=== PATIENT | female | born 1995 | race Hispanic/Latino ===

== ENCOUNTER 2017-10-12 13:27 | Outpatient (CLI) | payer MEDICAID ==
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
[2017-10-12 17:22] VITALS: BP 107/67
== END 2017-10-12 17:35 | disposition home or self-care (01) ==
LOC: TRG 13:27
PROVIDERS: ATTEND Obstetrics & Gynecology
DX: O47.02 False labor before 37 completed weeks of gestation, second trimester (principal); Z3A.27 27 weeks gestation of pregnancy
CPT/HCPCS: 59025; 76815

== ENCOUNTER 2017-12-15 18:22 | Outpatient (CLI) | payer MEDICAID ==
[2017-12-15] MEDS ORDERED: LACTATED RINGERS 500 ML IV ONE (18:44)
[2017-12-15 18:51] VITALS: BP 113/71
--- NOTE | 2017-12-15 20:14 | Ultrasound Report ---
FINAL REPORT EXAM: US OB LIMITED HISTORY: r/o rom LMP 04/04/2017 with estimated age 36 weeks 3 days and EDC 01/09/2018 TECHNIQUE: Limited ultrasound of the pelvis PRIORS: None. FINDINGS: Presentation: Cephalic Activity: Monitored Placenta: Located posteriorly with no evidence for placenta previa Cardiac motion: 138 BPM using M-mode doppler Amniotic Fluid Volume: Adequate VIKTORIA: 18.6 cm (normal) IMPRESSION: Single intrauterine viable with an approximate age of 36 weeks 3 days. Normal amniotic fluid volume is noted.
== END 2017-12-15 19:45 | disposition home or self-care (01) ==
LOC: TRG 18:22
PROVIDERS: ATTEND Obstetrics & Gynecology
DX: O47.03 False labor before 37 completed weeks of gestation, third trimester (principal); Z3A.36 36 weeks gestation of pregnancy
CPT/HCPCS: 59025; 76815

== ENCOUNTER 2017-12-30 13:42 | Inpatient (IN) | payer MEDICAID ==
[2017-12-30] MEDS ORDERED: BRETHINE IVP PRN (16:12)
[2017-12-30] MEDS ORDERED: ePHEDrine SULFATE IV PRN (16:12)
[2017-12-30] MEDS ORDERED: MINERAL OIL PO PRN (16:12)
[2017-12-30] MEDS ORDERED: ZOFRAN IV PRN ×2 (16:12→20:30)
[2017-12-30] MEDS ORDERED: XYLOCAINE 2% INFILTRATI ONE (16:12)
--- NOTE | 2017-12-30 16:19 | History and Physical Report ---
History of Present Illness Date of examination: 12/30/17 Chief complaint: labor History of present illness: EDC Confirmation: 01/09/2018 Past History : 2 Term Births: 0 Premature Births: 0 Living Children: 0 Para: 0 Mult. Births: 0 Prev : 0 Prev. attempt? 0 Aborta: 1 Elect. Ab: 0 Spont. 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 Infection History Hx of STD: none HIV Risk Eval: low risk Hepatitis B Risk Eval: low risk Personal hx. of genital herpes: no Partner hx. of genital herpes: no Rash, Viral, or Febrile illness since last LMP? no Varicella/Chicken Pox Status: Immunized Genetic History Congenital Heart Defect: Mom: no Dad: yes Comments: FOC had open heart surgery as infant Yousif Disease: Mom: no Dad: no Thalassemia Mom: no Dad: no Neural Tube Defect Mom: no Dad: no Down's Syndrome Mom: no Dad: no Reji-Sachs Mom: no Dad: no Sickle Cell Disease/Trait Mom: no Dad: no Hemophilia Mom: no Dad: no Muscular Dystrophy Mom: no Dad: no Cystic Fibrosis Mom: no Dad: no Aurora Chorea Mom: no Dad: no Mental Retardation Mom: no Dad: no Fragile X Mom: no Dad: no Other Genetic/Chromosomal Disorder Mom: no Dad: no Child w/other defect Mom: no Dad: no Enviromental Exposures Xray Exposure: no Medication, drug, or alcohol use since LMP: no Chemical/Other Exposure: no Exposure to Cat Liter: no Occupational Exposure to Children: none Comments: owns cats but they are outside cats Current Allergies (reviewed today): No known allergies Past History Past Medical History: other (see HPI) Past Surgical History: 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) Family/Genetic History: other (see HPI) - Obstetrical History Expected Date of Delivery: 01/09/18 Actual Gestation: 38 Week(s) 4 Day(s) : 2 Para: 1 Hx # Term Pregnancies: 0 Number of Pregnancies: 0 Spontaneous Abortions: 1 Induced : 0 Number of Living Children: 0 Medications and Allergies Allergies Allergy/AdvReac Type Severity Reaction Status Date / Time No Known Allergies Allergy Verified 10/12/17 14:24 Home Medications Medication Instructions Recorded Confirmed Last Taken Type Pnv 29-1 Tablet 1 tab PO DAILY 12/30/17 12/30/17 2 Days Ago History ~12/28/17 Review of Systems All systems: negative - Vital Signs Vital signs: Vital Signs Temp Resp 99.2 F 12/30/17 15:24 12/30/17 15:24 Temp Pulse Resp BP Pulse Ox 99.2 F 12/30/17 15:24 12/30/17 15:24 - Physical Exam Breasts: Positive: normal Cardiovascular: Regular rate Lungs: Positive: Clear to auscultation, Normal air movement Abdomen: Positive: normal appearance, soft Genitourinary (Female): Positive: normal external genitalia, normal perenium Vulva: both: normal Vagina: Positive: normal moisture Uterus: Positive: normal size, normal contour Anus/Rectum: Positive: normal perianal skin Extremities: Positive: normal Deep Tendon Reflex Grade: Normal +2 - Obstetrical FHR: category 1 Uterine Contraction Monitor Mode: External Cervical Dilatation: 4.5 Uterine Contraction Pattern: Regular Uterine Tone Measurement Phase: Contraction Uterine Contraction Intensity: Moderate Results All other labs normal. Assessment and Plan A: 22y/o in labor @ 38+4 weeks, GBS negative. complicated by third trimester dx of CT - treated 12/15/17 but JENNIFER not yet collected. P: Admission orders in EMR, Epidural PRN, pitocin augmentation as needed - Patient Problems (1) Active labor at term Current Visit: Yes Status: Acute (2) 38 weeks gestation of Current Visit: Yes Status: Acute
[2017-12-30] MEDS ORDERED: PITOCin/NS 30 UNIT/500ML 30 UNITS/500 ML BAG IV SCH (17:00)
[2017-12-30] MEDS ORDERED: PITOCin/NS 20 UNIT/1000ML DRIP 20 UNITS/1,000 ML BAG IV SCH (17:00)
[2017-12-30 17:15] LABS: Hematocrit 33.3 % (30.3-42.9); Mean Corpuscular HGB Conc 33 % (30-34); Mean Corpuscular Hemoglobin 27 pg (28-32); Mean Corpuscular Volume 82 fl (79-97); Platelet Count 245 K/mm3 (140-440); Red Blood Count 4.08 M/mm3 (3.65-5.03); Red Cell Distribution Width 14.7 % (13.2-15.2)
[2017-12-30] MEDS: SUBLIMAZE IV PRN ×2 (17:42→19:50)
[2017-12-30] MEDS: LACTATED RINGERS 1,000 ML IV SCH ×2 (17:42→21:39)
[2017-12-30] MEDS ORDERED: PHENERGAN PO PRN (20:30)
[2017-12-30] MEDS ORDERED: PHENERGAN PR PRN (20:30)
[2017-12-30] MEDS ORDERED: NARCAN 0.4 MG/1 ML IV PRN (20:30)
[2017-12-30] MEDS ORDERED: BENADRYL IV PRN (20:30)
[2017-12-30] MEDS ORDERED: SODIUM CHLORIDE FLUSH SYRINGE 10 ML IV NR (21:00)
[2017-12-30] MEDS ORDERED: fentaNYL-BUPIV 2 MCG/ML-0.125% 200 MCG/100 ML BAG EPIDURAL SCH (21:00)
--- NOTE | 2017-12-31 01:07 | Procedure Note ---
OB Delivery Note - Delivery Date of Delivery: 12/31/17 Surgeon: ANNE ROSALES Estimated blood loss: 200cc - Vaginal Delivery presentation: vertex Delivery position: OA Intrapartum events: none Delivery induction: none Delivery monitor: external FHT, external uterine Route of delivery: Delivery placenta: spontaneous Delivery cord: 3 umbilical vessels Episiotomy: midline (no extensions) Delivery laceration: none Delivery repair: vicryl (3-0) Anesthesia: epidural Delivery comments: Delivery as above. No shoulder dystocia or nuchal cord present. Ant shoulder and rest of infant delivered w/o difficulty. NICU team present due to decels with pushing. delivered over a MLE and placed on maternal abdomen. Cord clamped times two and cut times one. Cord blood was not collected. MLE was w/o extension and repaired in usual fashion with 3-0 vicryl. Mother and infant stable on LDR. - Infant A at 1 minute: 8 at 5 minutes: 9 Gender: Male (7lbs 5 oz)
[2017-12-31] MEDS ORDERED: DULCOLAX PR PRN (01:10)
[2017-12-31] MEDS ORDERED: NORCO 5/325 PO PRN (01:10)
[2017-12-31] MEDS ORDERED: TYLENOL PO PRN (01:10)
[2017-12-31] MEDS ORDERED: MILK OF MAGNESIA PO PRN (01:10)
[2017-12-31] MEDS ORDERED: TUCKS PAD TP PRN (01:10)
[2017-12-31] MEDS ORDERED: BENADRYL PO PRN (01:10)
[2017-12-31] MEDS ORDERED: LANSINOH TP PRN (01:10)
[2017-12-31] MEDS ORDERED: SODIUM CHLORIDE FLUSH SYRINGE 10 ML IV NR (02:00)
[2017-12-31] MEDS: MOTRIN PO SCH (05:57)
[2017-12-31 13:37] LABS: Hematocrit 26.3 % (30.3-42.9); Hemoglobin 8.8 gm/dl (10.1-14.3)
[2018-01-01] MEDS: MOTRIN PO SCH ×3 (00:20→12:05)
[2018-01-01] MEDS ORDERED: BOOSTRIX IM ONE (06:00)
--- NOTE | 2018-01-01 09:53 | Discharge Summary ---
Providers - Providers Date of Admission: 12/30/17 16:59 Date of discharge: 01/01/18 Attending physician: ANNE ROSALES Primary care physician: ANNE ROSALES Hospitalization Reason for admission: active labor Delivery: Episiotomy: midline Other procedures: none complications: none Discharge diagnosis: IUP at term delivered [place] baby: male Hospital course: Patient was admitted underwent a normal spontaneous vaginal delivery. Her course was benign. She was afebrile throughout her stay. Her day 1 hematocrit was 26.3%. Patient without orthostatic symptoms. Patient is breast-feeding and undecided on control. Patient desires discharge today. Condition at discharge: Good Disposition: DC-01 TO HOME OR SELFCARE - Discharge Diagnoses (1) Active labor at term Status: Resolved (2) 38 weeks gestation of Status: Resolved Plan - Discharge Medications Prescriptions: Lidocain2.5%/Prilocai2.5% [Emla] 2 gm TP ONCE #1 tube Ibuprofen 800 mg PO Q6HR #30 tablet - Provider Discharge Summary Activity: routine, no sex for 6 weeks Diet: routine Instructions: routine Additional instructions: [] Smoking cessation referral if applicable(refer to patient education folder for contact #) [] Refer to [facility] Booklet Call your doctor immediately for: * Fever > 100.5 * Heavy vaginal bleeding ( >1 pad per hour) * Severe persistent headache * Shortness of breath * Reddened, hot, painful area to leg or breast * Drainage or odor from incision. * Keep incision clean and dry at all times and follow doctor's instructions regarding bathing/showering Patient to schedule a circumcision for her son. An follow-up in office in 4-6 weeks. - Follow up plan Follow up: ANNE ROSALES MD [Primary Care Provider] - 7 Days
[2018-01-01 19:30] VITALS: BP 112/73
== END 2018-01-01 17:15 | disposition home or self-care (01) | DRG 775 ==
LOC: TRG 13:42 → LD 16:59 → OB 12-31 02:25
PROVIDERS: ADMIT Obstetrics & Gynecology; ATTEND Obstetrics & Gynecology
PROC: 10E0XZZ Delivery of Products of Conception, External Approach (ICD-10-PCS; principal; 2017-12-31)
PROC: 0W8NXZZ Division of Female Perineum, External Approach (ICD-10-PCS; 2017-12-31)
PROC: 3E0R3BZ Introduction of Anesthetic Agent into Spinal Canal, Percutaneous Approach (ICD-10-PCS; 2017-12-31)
PROC: 00HU33Z Insertion of Infusion Device into Spinal Canal, Percutaneous Approach (ICD-10-PCS; 2017-12-31)
DX: O99.344 Other mental disorders complicating childbirth (principal); Z3A.38 38 weeks gestation of pregnancy; Z37.0 Single live birth; F32.9 Major depressive disorder, single episode, unspecified
CPT/HCPCS: 36415; 85014; 85018; 85027; 86592; 86850; 86900; 86901; 88307; 99211; G0463; J2590; J3010; J7120

== ENCOUNTER 2019-01-31 09:43 | Inpatient (IN) | payer MEDICAID ==
--- NOTE | 2019-01-31 11:08 | History and Physical Report ---
History of Present Illness Date of examination: 01/31/19 Date of admission: contractions Chief complaint: Pt presents c/o painful contractions. Cx noted in traige to be 6/90/0. Will admit for active pre term labor and deliver. History of present illness: EDC Calculations LMP: 02/22/2019 First Doppler FHT (date): 07/27/2018 FHT: 02/22/2019 EDC Confirmation: 02/22/2019 Gestational Age: 10 weeks Past History : 3 Term Births: 1 Premature Births: 0 Living Children: 1 Para: 1 Mult. Births: 0 Prev : 0 Prev. attempt? 0 Aborta: 1 Elect. Ab: 0 Spont. Ab: 1 Ectopics: 0 # 1 Delivery date: 03/2016 Weeks Gestation: 9 Delivery type: SAB # 2 Delivery date: 12/31/2017 Weeks Gestation: 38.5 Delivery type: Vaginal Anesthesia type: epidural Delivery location: [facility] Sex: male weight: 7.31 Name: AGUSTINA Comments: none Past Medical History: Reviewed history from 06/16/2017 and no changes required: depression Past Surgical History: Reviewed history from 06/16/2017 and no changes required: Negative Past Surgical History Past Medical History Abnormal PAP: negative Social Hx: Single unemployed no smoking/drinking/drugs Patient is single Smoking History: Patient has never smoked. Infection History Hx of STD: chlamydia HIV Risk Eval: low risk Hepatitis B Risk Eval: low risk Personal hx. of genital herpes: no Partner hx. of genital herpes: no Rash, Viral, or Febrile illness since last LMP? no Varicella/Chicken Pox Status: Immunized Genetic History Congenital Heart Defect: Mom: no Dad: yes Yousif Disease: Mom: no Dad: no Thalassemia Mom: no Dad: no Neural Tube Defect Mom: no Dad: no Down's Syndrome Mom: no Dad: no Reji-Sachs Mom: no Dad: no Sickle Cell Disease/Trait Mom: no Dad: no Hemophilia Mom: no Dad: no Muscular Dystrophy Mom: no Dad: no Cystic Fibrosis Mom: no Dad: no Ana Chorea Mom: no Dad: no Mental Retardation Mom: no Dad: no Fragile X Mom: no Dad: no Other Genetic/Chromosomal Disorder Mom: no Dad: no Child w/other defect Mom: no Dad: no Enviromental Exposures Xray Exposure: no Medication, drug, or alcohol use since LMP: no Chemical/Other Exposure: no Exposure to Cat Liter: no Hx of Parvovirus (Fifth Disease): no Occupational Exposure to Children: none Active Medications (reviewed today): AZITHROMYCIN 500 MG ORAL TABLET (AZITHROMYCIN) 2 tabs po at one time PEPCID 40 MG ORAL TABLET (FAMOTIDINE) 1/2 tab BID ANALPRAM HC 2.5-1 % RECTAL CREAM (HYDROCORTISONE JADON-PRAMOXINE) apply bid to rectum ZOFRAN ODT 8 MG ORAL TABLET DISINTEGRATING (ONDANSETRON) 1 po q12hrs prn PNV () Current Allergies (reviewed today): No known allergies Past History Past Medical History: other (anemia) Past Surgical History: 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 Social history: no significant social history, single, lives with family - Obstetrical History Expected Date of Delivery: 02/22/19 Actual Gestation: 36 Week(s) 6 Day(s) : 2 Para: 1 Number of Living Children: 1 Medications and Allergies Allergies Allergy/AdvReac Type Severity Reaction Status Date / Time No Known Allergies Allergy Verified 10/12/17 14:24 Home Medications Medication Instructions Recorded Confirmed Last Taken Type Pnv 29-1 Tablet 1 tab PO DAILY 12/30/17 12/30/17 2 Days Ago History ~12/28/17 Ibuprofen 800 mg PO Q6HR #30 tablet 12/31/17 Unknown Rx Lidocain2.5%/Prilocai2.5% [Emla] 2 gm TP ONCE #1 tube 12/31/17 Unknown Rx Ferrous Sulfate [Feosol 325 MG tab] 325 mg PO BID #60 tablet 01/01/18 Unknown Rx Ibuprofen [Motrin 800 MG tab] 800 mg PO Q6H PRN #30 tablet 01/01/18 Unknown Rx Lidocain2.5%/Prilocai2.5% [Emla] 5 gm TP ONCE #1 tube 01/01/18 Unknown Rx Review of Systems All systems: negative - Vital Signs Vital signs: Vital Signs Pulse BP 82 119/72 01/31/19 10:56 01/31/19 10:56 Temp Pulse Resp BP Pulse Ox 82 119/72 01/31/19 10:56 01/31/19 10:56 - Physical Exam Abdomen: Positive: normal appearance, soft. Negative: distention, tenderness, guarding Genitourinary (Female): Positive: normal external genitalia, normal perenium. Negative: perineal/vulvar lesions Vulva: both: normal - Obstetrical FHR: category 1 Cervical Dilatation: 6.0 Cervical Effacement Percentage: 90 station: 0 Uterine Contraction Pattern: Irregular Uterine Tone Measurement Phase: Resting Uterine Contraction Intensity: Moderate Results All other labs normal. Assessment and Plan - Patient Problems (1) 36 weeks gestation of Current Visit: Yes Status: Acute (2) labor in third trimester Current Visit: Yes Status: Acute Qualifiers: Fetus number: single or unspecified fetus Plan to address problem: -GBS negative -anticipate -desires epidrual -iv pain meds for now.
[2019-01-31] MEDS ORDERED: BRETHINE IVP PRN (11:15)
[2019-01-31] MEDS ORDERED: MINERAL OIL PO PRN (11:15)
[2019-01-31] MEDS ORDERED: SUBLIMAZE IV PRN (11:15)
[2019-01-31] MEDS ORDERED: BRETHINE SUB-Q PRN (11:15)
[2019-01-31 11:48] LABS: Hematocrit 28.1 % (30.3-42.9); Hemoglobin 9.2 gm/dl (10.1-14.3); Mean Corpuscular HGB Conc 33 % (30-34); Mean Corpuscular Volume 75 fl (79-97); Platelet Count 239 K/mm3 (140-440); Red Blood Count 3.76 M/mm3 (3.65-5.03)
[2019-01-31] MEDS ORDERED: XYLOCAINE 2% INFILTRATI ONE (12:00)
[2019-01-31] MEDS ORDERED: PITOCin/NS 20 UNIT/1000ML DRIP 20 UNITS/1,000 ML BAG IV SCH (12:00)
[2019-01-31] MEDS ORDERED: ZOFRAN IV NR (13:06)
[2019-01-31] MEDS: LACTATED RINGERS 1,000 ML IV SCH ×2 (13:18→16:58)
[2019-01-31] MEDS ORDERED: MARCAINE 0.25% INFILTRATI ONE (13:48)
[2019-01-31] MEDS ORDERED: NARCAN 2 MG/2 ML IV PRN (14:12)
--- NOTE | 2019-01-31 14:12 | Anesthesia Consultation ---
Anesthesia Consult and Med Hx Date of service: 01/31/19 - Airway Anesthetic Teeth Evaluation: Good ROM Head & Neck: Adequate Mental/Hyoid Distance: Adequate Mallampati Class: Class II Intubation Access Assessment: Good - Pulmonary Exam CTA: Yes - Cardiac Exam Cardiac Exam: RRR - Pre-Operative Health Status ASA Pre-Surgery Classification: ASA2 Proposed Anesthetic Plan: Epidural - Pulmonary Hx Asthma: No COPD: No Hx Pneumonia: No - Cardiovascular System Hx Hypertension: No - Central Nervous System Hx Seizures: No Hx Psychiatric Problems: No - Endocrine Hx Renal Disease: No Hx End Stage Renal Disease: No Hx Hypothyroidism: No Hx Hyperthyroidism: No - Hematic Hx Anemia: No Hx Sickle Cell Disease: No - Other Systems Hx Alcohol Use: No
[2019-01-31] MEDS ORDERED: fentaNYL-BUPIV 2 MCG/ML-0.125% 200 MCG/100 ML BAG EPIDURAL SCH (15:00)
[2019-01-31] MEDS ORDERED: PITOCin/NS 30 UNIT/500ML 30,000 MILLIUNITS/500 ML BAG IV ONE (16:42)
--- NOTE | 2019-01-31 20:20 | Procedure Note ---
OB Delivery Note - Delivery Date of Delivery: 01/31/19 Surgeon: ANNE ROSALES Estimated blood loss: 200cc - Vaginal Delivery presentation: vertex Intrapartum events: labor-<37 weeks Delivery induction: none Delivery augmentation: pitocin Delivery monitor: external FHT, external uterine Route of delivery: Delivery placenta: spontaneous Episiotomy: none Delivery laceration: 2nd degree (perineal) Delivery repair: vicryl (3-0) Anesthesia: epidural Delivery comments: Delivery as above.Head delivered with infant hand. ant shoulder and rest of baby delivered w/o difficulty. placed on maternal abdomen. Cord clamed x2 and cut times one. Placenta delivered spontaneously intact. Laceration as above and repaired in usual fashion. EBL 200ml. - Infant A at 1 minute: 8 at 5 minutes: 9 Gender: Male
[2019-01-31] MEDS ORDERED: ZOFRAN IV PRN (20:21)
[2019-01-31] MEDS ORDERED: LANSINOH TP PRN (20:21)
[2019-01-31] MEDS ORDERED: TYLENOL PO PRN (20:21)
[2019-01-31] MEDS ORDERED: PHENERGAN PO PRN (20:21)
[2019-01-31] MEDS ORDERED: BENADRYL PO PRN (20:21)
[2019-01-31] MEDS ORDERED: PHENERGAN PR PRN (20:21)
[2019-01-31] MEDS ORDERED: DULCOLAX PR PRN (20:21)
[2019-01-31] MEDS ORDERED: TUCKS PAD TP PRN (20:21)
[2019-01-31] MEDS ORDERED: MILK OF MAGNESIA PO PRN (20:21)
[2019-01-31] MEDS ORDERED: SODIUM CHLORIDE FLUSH SYRINGE 10 ML IV PRN (21:00)
[2019-01-31] MEDS: IBUPROFEN PO SCH (23:14)
[2019-02-01] MEDS ORDERED: BOOSTRIX IM ONE (06:00)
[2019-02-01] MEDS: IBUPROFEN PO SCH ×4 (06:04→23:24)
--- NOTE | 2019-02-01 06:41 | Post Anesthesia Evaluation ---
- Post Anesthesia Evaluation Patient Participated: Yes Airway Patent: Yes Stable Respiratory Function: Yes Nausea/Vomiting: No Temp > 96.8F: Yes Pain Manageable: Yes Adequeate Hydration: Yes Anesthesia Complications: No Block Receding Appropriately: Yes Patient on Ventilator: No
--- NOTE | 2019-02-01 08:39 | Progress Note ---
Assessment and Plan PPD1 Patient resting in bed, reports feeling well, she denies any complaints or concerns at this time. Patient reports pain is 0. Fundus is firm, ML, U/s. Vaginal bleeding is scant, patient denies any clots or soaking greater than one pad per hour. Patient reports breast feeding , denies any breast complaints. She reports infant is doing well, but sometimes he "has a hard time latching". Tips for DWP. Encouraged patient to increase water intake and frequent BF sessions. Patient denies any dizziness or feeling faint with ambulation or position changes. Awaiting post delivery H&H results, iron and colace started as pt presented on admission anemic. Will continue to monitor for H&H results. VSSAF. Continue pathway. Subjective - Subjective Date of service: 02/01/19 Principal diagnosis: PPD1 Patient reports: appetite normal, voiding normally, pain well controlled, ambulating normally [place]: doing well Objective - Vital Signs Latest vital signs: Vital Signs Temp Pulse Resp BP BP Pulse Ox 02/01/19 04:00 98.7 F 68 16 114/67 02/01/19 00:00 98.4 F 78 16 106/70 01/31/19 22:00 98.6 F 76 18 98/63 01/31/19 20:59 78 111/62 01/31/19 20:16 84 100 01/31/19 20:11 94 H 100 01/31/19 20:06 83 99 01/31/19 20:01 95 H 100 01/31/19 19:56 89 100 01/31/19 19:51 89 100 01/31/19 19:46 97 H 99 01/31/19 19:41 88 99 01/31/19 19:36 84 100 01/31/19 19:31 93 H 99 01/31/19 19:27 69 77 L 01/31/19 19:26 92 H 100 01/31/19 19:21 98 H 100 01/31/19 19:18 97.5 F L 82 16 111/68 100 01/31/19 19:16 89 100 01/31/19 19:11 91 H 100 01/31/19 19:06 95 H 99 01/31/19 19:03 102 H 79 L 01/31/19 19:01 102 H 100 01/31/19 18:56 104 H 111/68 100 01/31/19 18:51 99 H 100 01/31/19 18:46 104 H 100 01/31/19 18:41 91 H 100 01/31/19 18:36 73 100 01/31/19 18:31 75 100 01/31/19 18:28 86 96/55 01/31/19 18:26 79 94 01/31/19 18:21 75 100 01/31/19 18:16 63 100 01/31/19 18:11 80 99 01/31/19 18:06 75 99 01/31/19 18:01 78 100 01/31/19 17:57 71 93/51 01/31/19 17:56 69 100 01/31/19 17:51 67 100 01/31/19 17:46 63 100 01/31/19 17:41 72 100 01/31/19 17:36 51 L 100 01/31/19 17:31 71 99 01/31/19 17:28 58 L 84/52 01/31/19 17:26 54 L 100 01/31/19 17:21 59 L 100 01/31/19 17:16 72 100 01/31/19 17:11 77 90 01/31/19 17:06 63 100 01/31/19 17:01 63 100 01/31/19 16:56 67 84/49 100 01/31/19 16:51 60 100 01/31/19 16:46 77 100 01/31/19 16:43 66 84/51 01/31/19 16:41 60 100 01/31/19 16:36 57 L 100 01/31/19 16:31 65 100 01/31/19 16:29 77 88/51 01/31/19 16:26 67 100 01/31/19 16:21 74 100 01/31/19 16:16 87 100 01/31/19 16:13 75 92/54 01/31/19 16:11 64 100 01/31/19 16:06 65 100 01/31/19 16:01 69 100 01/31/19 15:59 71 91/53 01/31/19 15:56 77 100 01/31/19 15:51 53 L 99 01/31/19 15:46 72 99 01/31/19 15:44 58 L 81/44 01/31/19 15:41 82 99 07/07/19 15:36 64 99 01/31/19 15:31 68 99 01/31/19 15:28 78 81/47 01/31/19 15:26 72 99 01/31/19 15:21 70 98 01/31/19 15:16 72 100 01/31/19 15:14 80 76/44 01/31/19 15:11 77 99 01/31/19 15:10 77 86/50 01/31/19 15:06 85 99 01/31/19 15:01 77 99 01/31/19 14:58 75 87/52 01/31/19 14:56 87 100 01/31/19 14:51 83 100 01/31/19 14:46 90 100 01/31/19 14:43 76 92/50 01/31/19 14:41 81 99 01/31/19 14:36 60 99 01/31/19 14:31 83 99 01/31/19 14:28 52 L 99/54 01/31/19 14:26 75 98 01/31/19 14:21 67 98 01/31/19 14:16 85 98 01/31/19 14:11 89 92/50 98 01/31/19 14:09 100 H 102/60 01/31/19 14:07 75 94/51 01/31/19 14:06 70 98 01/31/19 14:05 85 90/54 01/31/19 14:03 83 96/50 01/31/19 14:01 83 100/57 99 01/31/19 14:00 81 129/62 01/31/19 13:59 89 0 L 01/31/19 13:57 83 108/70 01/31/19 13:56 67 99 01/31/19 13:55 90 106/65 01/31/19 13:53 90 110/68 01/31/19 13:51 73 106/65 100 01/31/19 13:50 99 H 105/70 01/31/19 13:46 78 98 01/31/19 13:17 74 97/53 01/31/19 12:41 97.6 F 18 01/31/19 10:56 82 119/72 Intake and Output 01/31/19 02/01/19 02/01/19 23:59 07:59 15:59 Intake Total 1201.267 300 Output Total 1600 Balance 1201.267 -1300 Intake: IV 1001.267 Lactated Ringers 1,000 ml 1000 @ 125 mls/hr IV DIRECT NAWAF Rx#:[id number] PITOCin/NS 30 UNIT/500ML 1.267 30,000 milliunits In 500 ml @ 2 MILLIUNITS/MIN 2 mls/hr IV DIRECT ONE Rx#:[id number] Oral 200 Intake, Free Water 300 Output: Urine 1600 Void 1600 Other: Total, Intake Amount 200 Total, Output Amount 800 # Voids Void 1 Estimated Blood Loss 200 - Exam Breasts: Present: normal Cardiovascular: Present: Regular rate, Normal S1, Normal S2 Lungs: Present: Clear to auscultation, Normal air movement Abdomen: Present: normal appearance, soft, normal bowel sounds Vulva: both: normal Uterus: Present: normal, firm, fundal height below umbilicus Extremities: Present: normal - Labs Labs: Abnormal lab results 01/31/19 Range/Units 11:18 WBC 13.2 H (4.5-11.0) K/mm3 Hgb 9.2 L (10.1-14.3) gm/dl Hct 28.1 L (30.3-42.9) % MCV 75 L (79-97) fl MCH 24 L (28-32) pg RDW 16.0 H (13.2-15.2) %
[2019-02-01 08:54] LABS: Hematocrit 25.3 % (30.3-42.9); Hemoglobin 8.2 gm/dl (10.1-14.3)
[2019-02-01] MEDS: FEOSOL PO SCH ×2 (10:32→23:24)
[2019-02-01] MEDS: COLACE PO SCH ×2 (10:32→23:24)
[2019-02-02] MEDS: IBUPROFEN PO SCH ×2 (03:00→09:10)
--- NOTE | 2019-02-02 08:32 | Discharge Summary ---
Providers - Providers Date of Admission: 01/31/19 11:17 Date of discharge: 02/02/19 (desires d/c home) Attending physician: ANNE ROSALES Primary care physician: ANNE ROSALES Hospitalization Reason for admission: Labor Condition: Good Pertinent studies: post delivery H&H 8.2/25.3, asymptomatic existing anemia Procedures: Hospital course: uncomplicated and course Disposition: DC-01 TO HOME OR SELFCARE - Discharge Diagnoses (1) (normal spontaneous vaginal delivery) Status: Acute Core Measure Documentation - Palliative Care Palliative Care/ Comfort Measures: Not Applicable - Core Measures Any of the following diagnoses?: none Exam - Constitutional Vitals: Temp Pulse Resp BP Pulse Ox 98.1 F 53 L 18 91/61 98 02/02/19 01:52 02/02/19 01:52 02/02/19 01:52 02/02/19 01:52 02/02/19 01:52 General appearance: Present: no acute distress, well-nourished - EENT Eyes: Present: PERRL ENT: hearing intact, clear oral mucosa - Neck Neck: Present: supple, normal ROM - Respiratory Respiratory effort: normal Respiratory: bilateral: CTA - Cardiovascular Heart Sounds: Present: S1 & S2. Absent: rub, click - Extremities Extremities: pulses symmetrical, No edema Peripheral Pulses: within normal limits - Abdominal General gastrointestinal: Present: soft, non-tender, non-distended, normal bowel sounds Female genitourinary: Present: normal - Integumentary Integumentary: Present: clear, warm, dry - Musculoskeletal Musculoskeletal: gait normal, strength equal bilaterally - Psychiatric Psychiatric: appropriate mood/affect, intact judgment & insight - Neurologic Neurologic: CNII-XII intact, moves all extremities - Additional findings Additional findings: lochia scant, fundus firm, bottle and breast feeding Plan Activity: no restrictions Diet: regular Follow up with: ANNE ROSALES MD [Primary Care Provider] - 7 Days (Congratulations! Please call [phone] to schedule your son's circumcision in 1 week and your visit in 4 weeks. Bring GAURAV cream to your son's visit and await further instruction. Call for any questions or concerns. ) Prescriptions: Docusate Sodium [Colace] 100 mg PO BID PRN #60 capsule PRN Reason: Constipation Lidocain2.5%/Prilocai2.5% [Emla] 5 gm TP ONCE #1 tube Ferrous Sulfate [Feosol 325 MG tab] 325 mg PO BID #60 tablet
[2019-02-02] MEDS: FEOSOL PO SCH (09:10)
[2019-02-02] MEDS: COLACE PO SCH (09:11)
[2019-02-02 15:05] VITALS: BP 113/73
== END 2019-02-02 17:06 | disposition home or self-care (01) | DRG 775 ==
LOC: TRG 09:43 → LD 11:17 → OB 21:40
PROVIDERS: ADMIT Obstetrics & Gynecology; ATTEND Obstetrics & Gynecology
PROC: 10E0XZZ Delivery of Products of Conception, External Approach (ICD-10-PCS; principal; 2019-01-31)
PROC: 0KQM0ZZ Repair Perineum Muscle, Open Approach (ICD-10-PCS; 2019-01-31)
PROC: 3E0R3BZ Introduction of Anesthetic Agent into Spinal Canal, Percutaneous Approach (ICD-10-PCS; 2019-01-31)
PROC: 00HU33Z Insertion of Infusion Device into Spinal Canal, Percutaneous Approach (ICD-10-PCS; 2019-01-31)
DX: O60.14X0 Preterm labor third trimester with preterm delivery third trimester, not applicable or unspecified (principal); O99.02 Anemia complicating childbirth; D64.9 Anemia, unspecified; O70.1 Second degree perineal laceration during delivery; Z3A.36 36 weeks gestation of pregnancy; Z37.0 Single live birth; Z79.899 Other long term (current) drug therapy
CPT/HCPCS: 36415; 85014; 85018; 85027; 86592; 86850; 86900; 86901; 88307; 90471; 90715; G0378; J2405; J2590; J3010; J7120

== ENCOUNTER 2020-12-21 07:48 | Day surgery (SDC) | payer MEDICAID ==
[2020-12-15 11:49] LABS: Hematocrit 42.1 % (30.3-42.9); Hemoglobin 14.4 gm/dl (10.1-14.3); Mean Corpuscular HGB Conc 34 % (30-34); Mean Corpuscular Volume 87 fl (79-97); Platelet Count 249 K/mm3 (140-440); Red Blood Count 4.85 M/mm3 (3.65-5.03); Red Cell Distribution Width 13.4 % (13.2-15.2)
--- NOTE | 2020-12-19 14:32 | History and Physical Report ---
History of Present Illness Date of examination: 12/19/20 History of present illness: Patient has been reassessed/reevaluated. H&P has been reviewed. No interval changes. Patient desires sterilization. Discussed with various methods of contraceptives including abstinence, barrier and hormonal. Discussed oral, implantable, dermal, injectable,intravaginal and intrauterine methods. Patient declined temporary contraceptives. Discuss the permanency of sterilization. High risk of regret of women under 30 years old age who have had sterilization surgery and 0.5 to 1% risk of failure. Questions answered Patient understands and desires to proceed. Vital Signs: Patient Profile: 25 Years Old Female LMP: 12/2019 Height: 66 inches (167.64 cm) Weight: 117 pounds BMI: 18.88 Temp: 97.8 degrees F BP sittin / 80 (left arm) Menstrual History: LMP (date): 12/2019 Current Method of Contraception: Depo-Provera Date of Last Pap Smear: 06/06/2020 Past History : 4 Term Births: 1 Premature Births: 1 Living Children: 2 Para: 2 Mult. Births: 0 Prev : 0 Prev. attempt? 0 Aborta: 2 Elect. Ab: 0 Spont. Ab: 2 Ectopics: 0 # 1 Delivery date: 03/2016 Weeks Gestation: 9 Delivery type: SAB # 2 Delivery date: 12/31/2017 Weeks Gestation: 38.5 Delivery type: Vaginal Anesthesia type: epidural Delivery location: [facility] Sex: male weight: 7.31 Name: AGUSTINA Comments: none # 3 Delivery date: 01/31/2019 Weeks Gestation: 36.6 Delivery type: Vaginal Anesthesia type: epidural Delivery location: [facility] Sex: female weight: 2933g Comments: labor # 4 Delivery date: 12/10/2019 Weeks Gestation: 9 Delivery type: SAB Comments: No D&C done [employer] History Uterine Surgery (not C/S): negative Operations: left toe (2014) Abnormal PAP: negative Uterine Anomaly: negative DAVID Exposure: negative Infertility: negative Infection History HIV Risk Eval: no Hep B Immunized: yes TB exposure: no Personal hx. of genital herpes: no Partner hx. of genital herpes: no Hx of STD: chlamydia Current Allergies: No known allergies Past Medical History: Anemia Past Surgical History: left toe (2014) Family History Summary: General Comments - FH: mother - DM no known family hx cancer Social History: Single unemployed no smoking/drinking/drugs Patient is single Smoking History: Patient has never smoked. Risk Factors: Smoked Tobacco Use: Never smoker Smokeless Tobacco Use: Never Passive smoke exposure: no Drug use: no HIV high-risk behavior: no Caffeine use: <1 drinks per day Alcohol use: no Exercise: yes Times per week: 6 Seatbelt use: 100 % PAP Smear History: Date of Last PAP Smear: 06/06/2020 Review of Systems General Denies fever, chills, sweats, anorexia, fatigue, weakness, malaise, weight loss and sleep disorder. Denies vaginal discharge, incontinence, dysuria, hematuria, urinary frequency, amenorrhea, menorrhagia, abnormal vaginal bleeding, pelvic pain, genital sores, decreased libido, painful periods, painful sex, urinary urgency, hot flashes, vaginal dryness, vaginal itching and vaginal odor. CV Denies chest pains, palpitations, syncope, dyspnea on exertion, orthopnea, PND and peripheral edema. Resp Denies cough, dyspnea at rest, excessive sputum, hemoptysis, wheezing and p leurisy. GI Denies nausea, vomiting, diarrhea, constipation, change in bowel habits, abdominal pain, melena, hematochezia, jaundice, gas/bloating, indigestion/heartburn, dysphagia and odynophagia. Breast Denies left breast lump, right breast lump, nipple discharge, bloody discharge from nipple, breast pain, abnormal mammogram and breast enlargement. Psych Denies depression, anxiety, irritability and mood swings. Past History Past Medical History: other (SEE HPI FOR DETAILS) Past Surgical History: Other (SEE HPI FOR DETAILS) Social history: full code, other (SEE HPI FOR DETAILS) Family history: other (SEE HPI FOR DETAILS) Medications and Allergies Allergies Allergy/AdvReac Type Severity Reaction Status Date / Time No Known Allergies Allergy Verified 10/12/17 14:24 Home Medications Medication Instructions Recorded Confirmed Last Taken Type No Known Home Medications [No 12/14/20 12/14/20 Unknown History Reported Home Medications] Review of Systems Constitutional: other (SEE HPI FOR DETAILS) Exam - Physical Exam Narrative exam: HEENT: normocephalic, no lesions or deformities Skin no ulcers, xanthomas Chest: respiratory effort normal, clear to auscultation CV: regular, normal S1-S2, no murmur, no rub, no gallop Abdomen: soft, non-tender, no masses, bowel sounds normal Neuro: no gross anomalities Extremities: no clubbing, cyanosis, or edema [employer] Exams Vulva/Vagina: normal appearance, no discharge, lesions. No evidence of cystocele or rectocele. Cervix: normal appearance, no lesions, no discharge Uterus: normal position, midline, mobile Adnexae: no masses or tenderness Rectovaginal: exam defered - Constitutional Vitals: Temp Pulse Resp BP Pulse Ox 1115 F H 92 H 18 139/77 99 12/15/20 11:15 12/15/20 11:15 12/15/20 11:15 12/15/20 11:15 12/15/20 11:15 Results - Labs CBC & Chem 7: 12/15/20 06:00 Assessment and Plan - Patient Problems (1) Encounter for sterilization Current Visit: No Status: Acute Plan to address problem: Patient desires sterilization.Discuss the permanency of sterilization. High risk of regret and 0.5 to 1% risk of failure. Discussed options of tubal blockage and salpingectomy and it's possible benefit of preventing ovarian cancer and increased risks of bleeding during the procedure. Discuss the risks of the surgery including infection, bleeding possibly heavy enough to require a blood transfusion, possilble damage to bowel, bladder or ureter. Patient understands and desires to proceed with salpingectomy.
[~2020-12-21 07:48] MED LIST: ACETAMINOPHEN 500 MG TAB PO SCH; BUPIVACAINE/PF (0.5%) 5 MG/1 ML 30 ML VIAL INFILTRATI ONE; CELECOXIB 200 MG CAP PO NR; GABAPENTIN 300 MG CAP PO NR; LACTATED RINGERS 1,000 ML IV SCH; MIDAZOLAM 2 MG/2 ML INJ IV NR
--- NOTE | 2020-12-21 08:24 | Anesthesia Consultation ---
Anesthesia Consult and Med Hx Date of service: 12/21/20 - Airway Anesthetic Teeth Evaluation: Good ROM Head & Neck: Adequate Mental/Hyoid Distance: Adequate Mallampati Class: Class II Intubation Access Assessment: Probably Good - Pre-Operative Health Status ASA Pre-Surgery Classification: ASA1 Proposed Anesthetic Plan: General - Pulmonary Hx Smoking: No - Cardiovascular System Hx Hypertension: No - Central Nervous System CVA: No - Endocrine Hx Renal Disease: No Hx Liver Disease: No Hx Insulin Dependent Diabetes: No Hx Non-Insulin Dependent Diabetes: No Hx Thyroid Disease: No - Other Systems Hx Obesity: No - Additional Comments Anesthesia Medical History Comments: No hx anesthetic complications.
--- NOTE | 2020-12-21 08:24 | Anesthesia Day of Surgery ---
Anesthesia Day of Surgery - Day of Surgery Patient Examined: Yes Patient H&P Reviewed: Yes Patient is NPO: Yes
[2020-12-21] MEDS ORDERED: oxyCODONE /ACETAMINOPHEN 5-325MG TAB PO PRN (08:30)
[2020-12-21] MEDS ORDERED: ONDANSETRON 4 MG/2 ML INJ IV PRN (08:30)
[2020-12-21] MEDS ORDERED: propofoL 200 MG/20 ML VIAL IV ONE (11:10)
[2020-12-21] MEDS ORDERED: fentaNYL 100 MCG/2 ML INJ ONE (11:10)
[2020-12-21] MEDS ORDERED: GLYCOPYRROLATE 0.4 MG/2 ML INJ ONE (11:30)
[2020-12-21] MEDS ORDERED: BUPIVACAINE/PF (0.5%) 5 MG/1 ML 30 ML VIAL INFILTRATI ONE ×2 (11:46)
[2020-12-21] MEDS ORDERED: KETOROLAC 30 MG/1 ML INJ ONE (11:58)
[2020-12-21] MEDS ORDERED: ROCURONIUM 50 MG/5 ML INJ IV ONE (11:58)
[2020-12-21] MEDS ORDERED: LIDOCAINE MPF (2%) 20 MG/1 ML VIAL 5 ML ONE (11:58)
[2020-12-21] MEDS ORDERED: SUGAMMADEX SODIUM 200 MG/2 ML VIAL IV ONE (12:05)
[2020-12-21] MEDS: HYDROmorphone 1 MG/1 ML INJ IV PRN ×3 (12:33→12:53)
--- NOTE | 2020-12-21 12:33 | Short Stay Summary ---
Short Stay Documentation Date of service: 12/21/20 - History H&P: dictated Past Medical History: other (SEE HPI FOR DETAILS) Past Surgical History: Other (SEE HPI FOR DETAILS) Social history: full code, other (SEE HPI FOR DETAILS) - Allergies and Medications Current Medications: Allergies No Known Allergies Allergy (Verified 10/12/17 14:24) Home Medications Medication Instructions Recorded Confirmed Last Taken Type Ibuprofen [Motrin] 800 mg PO TID PRN #30 tablet 12/21/20 Unknown Rx oxyCODONE /ACETAMINOPHEN [Percocet 1 - 2 tab PO Q6HR PRN #10 tablet 12/21/20 Unknown Rx 5/325 mg] Active Medications Acetaminophen (Acetaminophen 500 Mg Tab) 1,000 mg PO PREOP NAWAF Stop: 12/21/20 20:00 Celecoxib (Celecoxib 200 Mg Cap) 200 mg PO PREOP NR Stop: 12/21/20 20:00 Gabapentin (Gabapentin 300 Mg Cap) 300 mg PO PREOP NR Stop: 12/21/20 20:00 Hydromorphone HCl (Hydromorphone 1 Mg/1 Ml Inj) 0.5 mg IV Q10MIN PRN PRN Reason: Pain , Severe (7-10) Stop: 12/21/20 18:00 Lactated Ringer's (Lactated Ringers) 1,000 mls @ 100 mls/hr IV DIRECT NAWAF Stop: 12/21/20 23:59 Midazolam HCl (Midazolam 2 Mg/2 Ml Inj) 2 mg IV PREOP NR Stop: 12/21/20 20:00 Ondansetron HCl (Ondansetron 4 Mg/2 Ml Inj) 4 mg IV ONCE PRN PRN Reason: Nausea And Vomiting Stop: 12/21/20 18:00 Oxycodone/Acetaminophen (Oxycodone /Acetaminophen 5-325mg Tab) 1 tab PO ONCE PRN PRN Reason: Pain, Moderate (4-6) Stop: 12/21/20 18:00 - Physical exam General appearance: no acute distress Lungs: Normal air movement Breasts: deferred Heart: Regular rate Gastrointestinal: normoactive bowel sounds, tenderness (Appropriately), distended (Appropriately post laparoscopy), other (Incisions intact) Female Genitourinary: normal Rectal Exam: deferred Extremities: no ischemia - Brief post op/procedure progress note Date of procedure: 12/21/20 (See dictated operative note for details) - Hospital course Hospital course: Patient was admitted underwent the above him procedure without any complications. Patient will be discharged with follow-up in office in 1-2 weeks for postop check. - Disposition Condition at discharge: Good Disposition: DC-01 TO HOME OR SELFCARE - Discharge Diagnoses (1) Encounter for sterilization Status: Acute Short Stay Discharge Plan Activity: advance as tolerated Diet: regular Wound: open to air Additional Instructions: Patient to call office for any fever, chills, nausea, vomiting or pain not controlled by pain medication. Follow up with: SEVEN CHAVEZ MD [Staff Physician] - 7 Days Prescriptions: Ibuprofen [Motrin] 800 mg PO TID PRN #30 tablet PRN Reason: Pain oxyCODONE /ACETAMINOPHEN [Percocet 5/325 mg] 1 - 2 tab PO Q6HR PRN #10 tablet PRN Reason: Pain
--- NOTE | 2020-12-21 12:35 | Operative Report ---
Operative Report Operative Report: Date of procedure: December 21, 2020 Pre-operative diagnosis: Patient desires permanent sterilization Post-operative diagnosis: Same Procedure name(s): Laparoscopic bilateral salpingectomy Surgeon: Vinh Whittaker MD [employer] Operator: [] Anesthesia: General endotracheal EBL: Minimal Complications: None Findings: Patient with uterus approximately 8 weeks in size with normal fallopian tubes bilaterally Specimen(s): Bilateral fallopian tubes Patient was brought in the operating room. General anesthesia was induced without difficulty. She was placed in dorsal lithotomy position. Prepped and draped in usual sterile manner. Her urinary bladder with was emptied with a red rubber catheter. Speculum placed in her vagina and Sargis uterine manipulator was placed for uterine manipulation without difficulty. Attention was then switched to the patient's abdomen. An infra-umbilical incision was made with a scalpel. This incision was spread with a hemostat. A 5 mm trocar was placed in this incision while lifting high the abdominal wall. Intra-abdominal presence was verified directly with the laparoscope. The patient was then insufflated to approximately 3 L of CO2 gas. The patient's findings as noted above. An accessory puncture was made suprapubically. The 8 mm trocar was placed through this incision under direct visualization with no evidence of internal organ damage. Each of the fallopian tube were identified by its fimbriated end. Starting with the right fallopian tube approximately 1 to 2 cm from the cornea LigaSure device was used to cross sectional cut the tube. From this point the ligature device was used to cauterize and cut the mesosalpinx until the fim briated end was reached detaching the tube. The fallopian tube was then removed through the accessory port attention was then switched to the contralateral tube. Same procedure was performed detaching that tube and removed it through the accessory port. The remaining stump was inspected and found to be hemostatic. At this time all instruments were removed. The patient was de- insufflated. The skin incisions were closed subcuticularly with 4-0 Vicryl. Marcaine was injected into the surgical incisions, for postoperative pain relief. The patient tolerated procedure well. She was awakened in the operating room and accompanied to the recovery room in good condition.
--- NOTE | 2020-12-21 14:55 | Post Anesthesia Evaluation ---
- Post Anesthesia Evaluation Patient Participated: Yes Airway Patent: Yes Stable Respiratory Function: Yes Nausea/Vomiting: No Temp > 96.8F: Yes Pain Manageable: Yes Adequeate Hydration: Yes Anesthesia Complications: No
[2020-12-21 22:24] VITALS: BP 122/78
== END 2020-12-21 07:49 | disposition home or self-care (01) ==
LOC: OR 07:48
PROVIDERS: ATTEND Obstetrics & Gynecology
DX: Z30.2 Encounter for sterilization (principal); G43.909 Migraine, unspecified, not intractable, without status migrainosus; Z79.899 Other long term (current) drug therapy; Z98.890 Other specified postprocedural states; Z80.8 Family history of malignant neoplasm of other organs or systems; Z86.2 Personal history of diseases of the blood and blood-forming organs and certain disorders involving the immune mechanism
CPT/HCPCS: 36415; 58670; 84703; 85027; 88302; J1170; J1885; J2250; J2704; J3010; J7120